=== PATIENT | female | born 1955 | race Caucasian/White ===

== ENCOUNTER → 2021-05-26 08:48 | Outpatient (CLI) | payer BC, SELFPAY ==
--- NOTE | ~2021-05-26 | XR_ITS ---
XR hip RT min 3V w AP pelvis DATE: 05/26/2021 09:03 INDICATION: Right hip pain TECHNIQUE: AP pelvis. AP and lateral views of right hip COMPARISON: None FINDINGS: There is multilevel degenerative disc disease and mild rotatory levoscoliosis of the lumbar spine. The pubic symphysis and sacroiliac joints are intact. No pelvic fracture or bone destruction is evident. No fracture, dislocation, avascular necrosis or bone destruction of the right hip. IMPRESSION: Multilevel degenerative disc disease and mild rotatory levoscoliosis of the lumbar spine No significant abnormality of the right hip Reviewed, dictated and finalized at location B. IMPRESSION: Multilevel degenerative disc disease and mild rotatory levoscoliosi s of the lumbar spine No significant abnormality of the right hip
== END ==
PROVIDERS: PCP Family Medicine; Visit Provider Nurse Practitioner Family
DX: M25.551 Pain in right hip (principal); M51.36 Other intervertebral disc degeneration, lumbar region; M41.86 Other forms of scoliosis, lumbar region
CPT/HCPCS: 73502

== ENCOUNTER 2021-11-24 00:36 | Day surgery (SDC) | payer BC, SELFPAY ==
[2021-11-04 14:49] VITALS: BMI 29.6
[2021-11-24 09:00] VITALS: BP 128/82; PULSE 93; RESP 16; TEMP 36.6; O2SAT 100
--- NOTE | 2021-11-24 09:06 | WPDANESEPPF ---
Anes - Initial Pre Proc Eval Procedure: Operation Date: 11/24/21 10:30 Proposed Procedures p Screening Colonoscopy - Harry Aguirre MD Date/Time: 11/24/21 09:06 Surgeon: Harry Aguirre MD Pre Op Diagnosis: neoplasm screening Patient Data Age: 66 Gender: F Height: 1.75 m Weight: 88 kg Last Vital Signs Temp 36.6 C 11/24/21 09:00 Pulse 93 11/24/21 09:00 Resp 16 11/24/21 09:00 BP 128/82 11/24/21 09:00 Pulse Ox 100 11/24/21 09:00 Allergies Allergy/AdvReac Type Severity Reaction Status Date / Time ioversol Allergy Unknown Other Verified 11/24/21 08:59 Contrast Media Allergy Mild RASH/ITCHIN Uncoded 09/28/19 08:40 G Home Medications Medication Instructions Recorded Confirmed Type fluticasone propionate 50 1 spray NASAL BID 10/18/19 11/24/21 History mcg/actuation nasal spray,suspension sennosides 8.6 mg tablet 17.2 mg PO DAILY PRN tablet 02/17/20 11/04/21 History irbesartan 150 mg tablet 300 mg PO DAILY #60 tablet 12/22/20 11/04/21 Rx atorvastatin 10 mg tablet 10 mg PO DAILY #90 tablet 05/07/21 11/04/21 Rx cholecalciferol (vitamin D3) 25 1,000 unit PO DAILY cap 09/17/21 11/04/21 History mcg (1,000 unit) capsule cyanocobalamin (vitamin B-12) 1,000 mcg PO DAILY 09/17/21 11/04/21 History 1,000 mcg tablet meloxicam 15 mg tablet 15 mg PO DAILY PRN #30 tablet 09/17/21 11/24/21 Rx metformin 500 mg tablet,extended 500 mg PO DAILY #90 tablet 11/09/21 11/24/21 Rx release 24 hr Patient hx anesthesia problems: none Family hx anesthesia problems: none Results Review: All pre-operative results and documents have been reviewed as part of the pre-operative evaluation. [facility] Past Medical History Medical History Abscess of skin BMI 28.0-28.9,adult BMI 29.0-29.9,adult Body mass index (BMI) of 30 to 39 in adult Breast cancer screening by mammogram normal mammogram 03/18/2021 Colon cancer screening Right hip pain Right lateral epicondylitis Surgical History Surgical History (Updated 11/24/21 @ 09:09 by Angel August MD) H/O colonoscopy H/O toe surgery History of section Family History Family History Mother Family history of malignant neoplasm Father Family history of Alzheimer's disease, Onset Age: 73 Social History Social History Smoking status: Former smoker Tobacco type: cigarettes Alcohol intake: current Drinks per week: 1 Substance use: never Substance use type: does not use Living arrangements: with family Spiritual care concerns: No Anes - Eval Final PreProcedure Day of Procedure 11/24/21 09:06 Patient weight: overweight Heart: regular rate and rhythm Lungs: clear to auscultation Airway: Mallampati scale class 1 Neurological: alert and oriented Last oral intake: >/= 8 hours ASA classification: III Emergent: no Anesthetic plan: proceed Anesthesia type and monitoring: general GIVS and standard monitoring Results Review: All pre-operative results and documents have been reviewed as part of the pre-operative evaluation. Informed Consent: The patient's anesthetic plan and its attendant risks and benefits were discussed with the patient/family/POA. Questions were solicited and answers provided to the satisfaction of the patient/family/POA.
--- NOTE | 2021-11-24 09:15 | WPDGICN ---
Assessment and Plan Assessment and plan (1) Colon cancer screening: Code(s): Z12.11 - Encounter for screening for malignant neoplasm of colon Status: Acute Assessment and Plan: Patient referred for neoplasia screening colonoscopy. Appears to be at average risk for colon polyps. Further recommendations will be given after colonoscopy. GI Consult Note Consult date/time: 11/24/21 09:15 HPI: Maria Luisa King is a 66 year old female Presents for screening colonoscopy. Patient reports her current weight appetite bowel movements are normal. She denies abdominal pain. She has had no bleeding. Family history is noncontributory. Review of Systems Review of Systems: All systems reviewed & are unremarkable except as noted in HPI and below PMFSH Past Medical History Medical History Abscess of skin BMI 28.0-28.9,adult BMI 29.0-29.9,adult Body mass index (BMI) of 30 to 39 in adult Breast cancer screening by mammogram normal mammogram 03/18/2021 Colon cancer screening Right hip pain Right lateral epicondylitis Surgical History Surgical History (Updated 11/24/21 @ 09:09 by Angel August MD) H/O colonoscopy H/O toe surgery History of section Family History Family History Mother Family history of malignant neoplasm Father Family history of Alzheimer's disease, Onset Age: 73 Social History Social History Smoking status: Former smoker Tobacco type: cigarettes Alcohol intake: current Drinks per week: 1 Substance use: never Substance use type: does not use Living arrangements: with family Spiritual care concerns: No Meds Home Medications and Allergies Home Medications Medication Instructions Recorded Confirmed Type fluticasone propionate 50 1 spray NASAL BID 10/18/19 11/24/21 History mcg/actuation nasal spray,suspension sennosides 8.6 mg tablet 17.2 mg PO DAILY PRN tablet 02/17/20 11/04/21 History irbesartan 150 mg tablet 300 mg PO DAILY #60 tablet 12/22/20 11/04/21 Rx atorvastatin 10 mg tablet 10 mg PO DAILY #90 tablet 05/07/21 11/04/21 Rx cholecalciferol (vitamin D3) 25 1,000 unit PO DAILY cap 09/17/21 11/04/21 History mcg (1,000 unit) capsule cyanocobalamin (vitamin B-12) 1,000 mcg PO DAILY 09/17/21 11/04/21 History 1,000 mcg tablet meloxicam 15 mg tablet 15 mg PO DAILY PRN #30 tablet 09/17/21 11/24/21 Rx metformin 500 mg tablet,extended 500 mg PO DAILY #90 tablet 11/09/21 11/24/21 Rx release 24 hr Allergies Allergy/AdvReac Type Severity Reaction Status Date / Time ioversol Allergy Unknown Other Verified 11/24/21 08:59 Contrast Media Allergy Mild RASH/ITCHIN Uncoded 09/28/19 08:40 G Vital Signs Vital Signs - 24 hr 11/24/21 09:00 Temperature 97.8 F Pulse Rate 93 Respiratory Rate 16 Blood Pressure 128/82 Pulse Oximetry 100 Exam Narrative: Physical exam reveals her to be alert. Vital signs stable. HEENT exam is unremarkable. Patient is anicteric. Lungs are clear to auscultation and percussion. Heart is without murmur or extra sounds. Abdominal exam bowel sounds present soft nontender with no organomegaly. Digital external rectal exam is normal.
[2021-11-24] MEDS: LACTATED RINGERS 1,000 ML 150 ML IV CONT (09:19)
[2021-11-24 09:28] LABS: Glucose Point of Care 116 mg/dl (65-105)
[2021-11-24] MEDS: SIMETHICONE ORAL SUSPENSION 20 MG/0.3 ML 30 ML BOTTLE 0.6 ML IRRIGATION (10:19)
[2021-11-24 10:26] VITALS: BP 115/64; PULSE 78; RESP 11; O2SAT 94
[2021-11-24 10:36] VITALS: BP 120/67; PULSE 72; RESP 18; O2SAT 96
[2021-11-24 10:46] VITALS: BP 130/84; PULSE 69; RESP 18; O2SAT 98
== END 2021-11-24 11:00 | disposition home or self-care (01) ==
PROVIDERS: PCP Family Medicine; Visit Provider Internal Medicine Gastroenterology
PROC: 0DJD8ZZ Inspection of Lower Intestinal Tract, Via Natural or Artificial Opening Endoscopic (ICD-10-PCS; CPT 45378; principal; 2021-11-24 10:30)
DX: Z12.11 Encounter for screening for malignant neoplasm of colon (principal); D12.0 Benign neoplasm of cecum; K63.5 Polyp of colon; K57.30 Diverticulosis of large intestine without perforation or abscess without bleeding; K64.8 Other hemorrhoids; Z87.891 Personal history of nicotine dependence; Z79.84 Long term (current) use of oral hypoglycemic drugs
CPT/HCPCS: 45385; 82948; 88305; J2704; J7120